=== PATIENT | female | born 1995 | race Hispanic/Latino ===

== ENCOUNTER 2017-05-26 07:36 | Emergency (ER) | payer MEDICAID, OTHER ==
[2017-05-26 08:07] VITALS: BMI 35.4
[2017-05-26 08:19] VITALS: TEMP 102.2
--- NOTE | 2017-05-26 08:20 | ED PDOC ---
Arrival/HPI - General Time Seen by Provider: 05/26/17 08:01 Historian: Patient - History of Present Illness Narrative History of Present Illness (Text): 05/26/17 08:05 Charlotte Ritter is a 22 Year old female, who presents to the emergency department complaining of coughing and generalized body aches. Patient reports this morning developing abdominal pain with vomiting, along with dizziness and states it caused her to fall and hit her face. Additionally, she notes taking Mucinex with no relief and these symptoms being similar to her PMH of pneumonia. Patient denies chest pain, shortness of breath, headache, fever, chills cough, diarrhea, recent travels or other complaints. Time/Duration: < week Symptom Onset: Gradual Symptom Course: Worsening Quality: Aching Context: Home Past Medical History - Provider Review Nursing Documentation Reviewed: Yes Family/Social History - Physician Review Nursing Documentation Reviewed: Yes Family/Social History: Unknown Family HX Allergies/Home Meds Allergies/Adverse Reactions: Allergies No Known Allergies Allergy (Verified 05/26/17 08:05) Review of Systems - Physician Review All systems were reviewed & negative as marked: Yes - Review of Systems Constitutional: absent: Fevers Respiratory: Cough. absent: SOB Cardiovascular: absent: Chest Pain Gastrointestinal: Abdominal Pain, Vomiting Musculoskeletal: Myalgias Neurological: Dizziness Physical Exam Vital Signs Reviewed: Yes Vital Signs Temp Pulse Resp BP Pulse Ox 05/26/17 11:12 116 H 18 101/51 L 98 05/26/17 09:16 102.2 F H 05/26/17 08:17 102.2 F H 107 H 19 100/66 97 Temperature: Febrile Blood Pressure: Normal Pulse: Tachycardic Respiratory Rate: Normal Appearance: Positive for: Well-Appearing, Non-Toxic, Comfortable Pain Distress: None Mental Status: Positive for: Alert and Oriented X 3 - Systems Exam Head: Present: Atraumatic, Normocephalic Pupils: Present: PERRL Extroacular Muscles: Present: EOMI Conjunctiva: Present: Normal Respiratory/Chest: Present: Clear to Auscultation, Good Air Exchange. No: Respiratory Distress, Accessory Muscle Use, Wheezes, Rales, Retracting, Rhonchi Cardiovascular: Present: Regular Rate and Rhythm, Normal S1, S2. No: Murmurs Abdomen: Present: Normal Bowel Sounds. No: Tenderness, Distention, Peritoneal Signs, Rebound, Guarding Neurological: Present: GCS=15, CN II-XII Intact, Speech Normal Skin: Present: Warm, Dry, Normal Color. No: Rashes Psychiatric: Present: Alert, Oriented x 3, Normal Insight, Normal Concentration Medical Decision Making ED Course and Treatment: 05/26/17 Impression: 22 Year old female with unremarkable physical exam Complaining of abdominal pain and dizziness since this morning. Plan: -- Chest X-ray -- Labs -- Urinalysis -- Reassess and disposition Progress Notes: 05/26/17 11:20 Chest X-ray: Creator : Jose Gage MD FINDINGS: LUNGSL: No active pulmonary disease. PLEURA: No significant pleural effusion identified, no pneumothorax apparent. CARDIOVASCULAR: Normal. OSSEOUS STRUCTURES: No significant abnormalities. VISUALIZED UPPER ABDOMEN: Normal. OTHER FINDINGS: None. IMPRESSION: No active disease. - Lab Interpretations Lab Results: 05/26/17 09:30 05/26/17 09:30 Lab Results 05/26/17 10:28: Urine Color Yellow, Urine Appearance Clear, Urine pH 8.5, Ur Specific [place] 1.020, Urine Protein Trace H, Urine Glucose (UA) Negative, Urine Ketones Negative, Urine Blood Negative, Urine Nitrate Negative, Urine Bilirubin Negative, Urine Urobilinogen 0.2, Ur Leukocyte Esterase Trace H, Urine RBC 0 - 2, Urine WBC 2 - 5, Ur Epithelial Cells 6 - 8, Urine Bacteria Few , Urine HCG, Qual Negative 05/26/17 09:30: Sodium 140, Potassium 4.1, Chloride 105, Carbon Dioxide 24, Anion Gap 15, BUN 8, Creatinine 0.8, Est GFR ( Amer) > 60, Est GFR (Non- Af Amer) > 60, Random Glucose 91, Calcium 9.5, Total Bilirubin 0.6, AST 24, ALT 36, Alkaline Phosphatase 71, Total Protein 7.6, Albumin 4.5, Globulin 3.1, Albumin/Globulin Ratio 1.5 05/26/17 09:30: WBC 5.0, RBC 4.00, Hgb 11.4 L, Hct 35.6 L, MCV 89.0, MCH 28.5, MCHC 32.0, RDW 13.7, Plt Count 154, MPV 12.0 H, Gran % 75.4 H, Lymph % (Auto) 12.9 L, [place] % (Auto) 11.3 H, Eos % (Auto) 0.4 L, Baso % (Auto) 0.0, Gran # 3.80 , Lymph # (Auto) 0.7 L, [place] # (Auto) 0.6, Eos # (Auto) 0.0, Baso # (Auto) 0.00 I have reviewed the lab results: Yes - RAD Interpretation Radiology Orders: 05/26/17 08:47 CHEST PORTABLE [RAD] Stat Cushion Cover Inspector: Radiologist - Medication Orders Current Medication Orders: Discontinued Medications Acetaminophen (Tylenol 325mg Tab) 650 mg PO STAT STA Stop: 05/26/17 08:49 Last Admin: 05/26/17 09:16 Dose: 650 mg MAR Pain/Vitals Document 05/26/17 09:16 LA (Rec: 05/26/17 09:20 LA [id number]) Pain Reassessment Is This A Pain ReAssessment? No Sleep Is patient sleeping during reassessment? No Presence of Pain Presence of Pain No Pain Scale Used Pain Scale Used Numeric Vitals Temperature (97.6 F-99.6 F) 102.2 F Temperature Source Oral Sodium Chloride (Sodium Chloride 0.9%) 1,000 mls @ 999 mls/hr IV .Q1H1M STA Stop: 05/26/17 09:49 Last Admin: 05/26/17 09:21 Dose: 999 mls/hr eMAR Start Stop Document 05/26/17 09:21 LA (Rec: 05/26/17 09:21 LA [id number]) Intravenous Solution Start Date 05/26/17 Start Time 09:21 - Scribe Statement The provider has reviewed the documentation as recorded by the Scribe Disposition/Present on Arrival - Present on Arrival Any Indicators Present on Arrival: No History of DVT/PE: No History of Uncontrolled Diabetes: No Urinary Catheter: No History of Decub. Ulcer: No - Disposition Have Diagnosis and Disposition been Completed?: Yes Diagnosis: Flu syndrome Disposition: HOME/ ROUTINE Disposition Time: 11:30 Patient Plan: Discharge Condition: STABLE Additional Instructions: Plenty of fluids. Tylenol every 4 hours Prescriptions: Oseltamivir Phosphate [Tamiflu] 75 mg PO BID #10 capsule Promethazine DM [Phenergan DM Syrup] 10 ml PO TID PRN #120 ml PRN Reason: Cough Referrals: [employer] [facility], [Primary Care Provider] - Follow up with primary
[2017-05-26] MEDS ORDERED: Sodium Chloride 0.9% 1,000 ML IV STA (08:49)
[2017-05-26 09:40] LABS: EOS % 0.4 % (1.5-5.0); GRAN # 3.8 (1.4-6.5); GRAN % 75.4 % (50.0-68.0); HEMOGLOBIN 11.4 g/dL (12.0-16.0); LYMPH # 0.7 (1.2-3.4); LYMPH % 12.9 % (22.0-35.0); MEAN CORPUSCULAR HEMOGLOBIN 28.5 pg (25.0-35.0); MONO # 0.6 (0.1-0.6); MONO % 11.3 % (1.0-6.0); RED CELL DISTRIBUTION WIDTH 13.7 % (11.5-14.5)
[2017-05-26 09:50] LABS: ALB/GLOB RATIO 1.5 (1.1-1.8); ALBUMIN 4.5 g/dL (3.0-4.8); ALT/SGPT 36 U/L (7-56); AST/SGOT 24 U/L (14-36); BLOOD UREA NITROGEN 8 mg/dL (7-21); CALCIUM 9.5 mg/dL (8.4-10.5); GFR AFRICAN-AMERICAN > 60; GFR NON-AFRICAN AMERICAN > 60
[2017-05-26 10:36] LABS: PH,URINE 8.5 (4.7-8.0); URINE BILIRUBIN NEGATIVE (NEGATIVE); URINE BLOOD NEGATIVE (NEGATIVE); URINE GLUCOSE (UA) NEGATIVE (NEGATIVE); URINE LEUKOCYTE ESTERASE TRACE Leu/uL (NEGATIVE); URINE NITRATE NEGATIVE (NEGATIVE); URINE PROTEIN TRACE mg/dL (<30 mg/dL); URINE UROBILINOGEN 0.2 E.U./dL (<1 E.U./dL)
[2017-05-26 10:40] LABS: URINE APPEARANCE CLEAR (CLEAR); URINE COLOR YELLOW (YELLOW)
[2017-05-26 10:43] LABS: URINE RBC 0 - 2 /hpf (0-2)
[2017-05-26 10:44] LABS: HCG,QUALITATIVE URINE NEGATIVE (NEGATIVE); URINE BACTERIA FEW (NEG)
[2017-05-26 11:15] VITALS: BP 101/51; PULSE 116; RESP 18; O2SAT 98
--- NOTE | 2017-05-26 11:16 | RAD ---
HISTORY: cough COMPARISON: No prior. FINDINGS: LUNGS: No active pulmonary disease. PLEURA: No significant pleural effusion identified, no pneumothorax apparent. CARDIOVASCULAR: Normal. OSSEOUS STRUCTURES: No significant abnormalities. VISUALIZED UPPER ABDOMEN: Normal. OTHER FINDINGS: None. IMPRESSION: No active disease.
== END 2017-05-26 11:40 | disposition home or self-care (01) ==
LOC: ED 07:36
DX: J11.1 Influenza due to unidentified influenza virus with other respiratory manifestations (principal)
CPT/HCPCS: 71045; 80053; 81001; 84703; 85025; 87086; 99284; J7040

== ENCOUNTER 2018-09-24 23:34 | Emergency (ER) | payer BC, MEDICAID ==
[2018-09-25 00:07] VITALS: TEMP 97.9; BMI 46.2
[2018-09-25] MEDS ORDERED: DiphenhydrAMINE 50 mg/ml Inj IVP STA (00:15)
[2018-09-25 00:42] LABS: BASO # 0.01 K/mm3 (0.0-2.0); BASO % 0.1 % (0.0-3.0); EOS # 0.1 (0.0-0.7); EOS % 0.5 % (1.5-5.0); HEMOGLOBIN 11.9 g/dL (12.0-16.0); LYMPH % 18.3 % (22.0-35.0); MEAN CORPUSCULAR HEMOGLOBIN 27.8 pg (25.0-35.0); MEAN CORPUSCULAR HGB CONC 32.7 g/dl (31.0-37.0); MEAN PLATELET VOLUME 11.8 fl (7.0-11.0); MONO # 0.8 (0.1-0.6); MONO % 6.9 % (1.0-6.0); RBC 4.28 10^6/uL (3.5-6.1); RED CELL DISTRIBUTION WIDTH 13.6 % (11.5-14.5)
[2018-09-25 00:45] LABS: INR 1.08; PARTIAL THROMBOPLASTIN TIME 32.1 Seconds (26.9-38.3)
[2018-09-25 00:51] LABS: ALB/GLOB RATIO 1.5 (1.1-1.8); ALBUMIN 4.4 g/dL (3.0-4.8); ALT/SGPT 27 U/L (7-56); AST/SGOT 22 U/L (14-36); BLOOD UREA NITROGEN 10 mg/dL (7-21); CALCIUM 9.2 mg/dL (8.4-10.5); GFR NON-AFRICAN AMERICAN > 60
--- NOTE | 2018-09-25 01:08 | ED PDOC ---
Arrival/HPI <Carlos Montenegro - Last Filed: 09/25/18 01:56> - General Historian: Patient - History of Present Illness Narrative History of Present Illness (Text): 09/25/18 01:04 23yo female with no past medical history who present with complaint of headache x days. States she started having the headache last month with her menstrual period. States the headache resolved and started again 4days ago with her period. States headache is on her nape and forehead area. States Tylenol and Ibuprofen is not helping her headache. Notes that she saw a Specialist?? last month and was referred for lab and MRI, but didn't go because the headache resolved. Denies nuchal ridgity, fever, nausea, vomiting, photophobia, any other complaint. <Jess Burroughs A - Last Filed: 09/26/18 01:04> - General Chief Complaint: Headache Past Medical History - Provider Review Nursing Documentation Reviewed: Yes - Pulmonary Hx Pneumonia: Yes - Musculoskeletal/Rheumatological Hx Falls: No - Psychiatric Hx Substance Use: No - Anesthesia Hx Anesthesia: No <Jess Burroughs A - Last Filed: 09/26/18 01:04> Family/Social History - Physician Review Nursing Documentation Reviewed: Yes Family/Social History: Unknown Family HX Smoking Status: Never Smoked Hx Alcohol Use: No Hx Substance Use: No <Jess Burroughs A - Last Filed: 09/26/18 01:04> Allergies/Home Meds <Carlos Montenegro - Last Filed: 09/25/18 01:56> <Jess Burroughs A - Last Filed: 09/26/18 01:04> Allergies/Adverse Reactions: Allergies No Known Allergies Allergy (Verified 09/25/18 00:22) Review of Systems - Physician Review All systems were reviewed & negative as marked: Yes - Review of Systems Constitutional: Normal Eyes: Normal ENT: Normal Respiratory: Normal Cardiovascular: Normal Gastrointestinal: Normal Genitourinary Female: Normal Musculoskeletal: Normal Skin: Normal Neurological: Headache. absent: Dizziness, Focal Weakness, Gait Changes, Speech Changes, Facial Droop Endocrine: Normal Hemo/Lymphatic: Normal Psychiatric: Normal <Jess Burroughs A - Last Filed: 09/26/18 01:04> Physical Exam Vital Signs Temp Pulse Resp BP Pulse Ox 09/25/18 00:07 97.9 F 90 18 177/77 H 100 <Carlos Montenegro - Last Filed: 09/25/18 01:56> Vital Signs Reviewed: Yes Vital Signs Temp Pulse Resp BP Pulse Ox 09/25/18 00:07 97.9 F 90 18 177/77 H 100 Temperature: Afebrile Blood Pressure: Normal Pulse: Regular Respiratory Rate: Normal Appearance: Positive for: Well-Appearing, Non-Toxic, Comfortable Pain Distress: None Mental Status: Positive for: Alert and Oriented X 3 - Systems Exam Head: Present: Atraumatic, Normocephalic Pupils: Present: PERRL Extroacular Muscles: Present: EOMI Conjunctiva: Present: Normal Mouth: Present: Moist Mucous Membranes Neck: Present: Normal Range of Motion Respiratory/Chest: Present: Clear to Auscultation, Good Air Exchange. No: Respiratory Distress, Accessory Muscle Use Cardiovascular: Present: Regular Rate and Rhythm, Normal S1, S2. No: Murmurs Abdomen: No: Tenderness, Distention, Peritoneal Signs Back: Present: Normal Inspection Upper Extremity: Present: Normal Inspection. No: Cyanosis, Edema Lower Extremity: Present: Normal Inspection. No: Edema Neurological: Present: GCS=15, CN II-XII Intact, Speech Normal, Motor Func Grossly Intact, Normal Sensory Function, Normal Cerebellar Funct, Gait Normal, Memory Normal, Other (No focal neurologicl deficit) Skin: Present: Warm, Dry, Normal Color. No: Rashes Psychiatric: Present: Alert, Oriented x 3, Normal Insight, Normal Concentration <Diru,Happiness A - Last Filed: 09/26/18 01:04> Medical Decision Making - Lab Interpretations Lab Results: PT 12.0 SECONDS (9.4-12.5) 09/25/18 00:28 INR 1.08 09/25/18 00:28 APTT 32.1 Seconds (26.9-38.3) 09/25/18 00:28 Total Bilirubin 0.7 mg/dL (0.2-1.3) 09/25/18 00:28 AST 22 U/L (14-36) 09/25/18 00:28 ALT 27 U/L (7-56) 09/25/18 00:28 Alkaline Phosphatase 76 U/L (38-126) 09/25/18 00:28 Total Protein 7.4 g/dL (5.8-8.3) 09/25/18 00:28 Albumin 4.4 g/dL (3.0-4.8) 09/25/18 00:28 Globulin 3.0 gm/dL 09/25/18 00:28 Albumin/Globulin Ratio 1.5 (1.1-1.8) 09/25/18 00:28 - RAD Interpretation Radiology Orders: 09/25/18 00:15 HEAD W/O CONTRAST [CT] Stat - Medication Orders Current Medication Orders: Discontinued Medications Acetaminophen (Tylenol 325mg Tab) 650 mg PO STAT STA Stop: 09/25/18 00:16 Last Admin: 09/25/18 00:34 Dose: 650 mg Diphenhydramine HCl (Benadryl) 25 mg IVP STAT STA Stop: 09/25/18 00:16 Last Admin: 09/25/18 00:35 Dose: 25 mg IVP Administration Document 09/25/18 00:35 CNR (Rec: 09/25/18 00:35 CNR [id number]) Charges for Administration # of IVP Administrations 1 Metoclopramide HCl (Reglan) 10 mg IVP STAT STA Stop: 09/25/18 00:16 Last Admin: 09/25/18 00:35 Dose: 10 mg IVP Administration Document 09/25/18 00:35 CNR (Rec: 09/25/18 00:35 CNR [id number]) Charges for Administration # of IVP Administrations 1 <Carlos Montenegro - Last Filed: 09/25/18 01:56> ED Course and Treatment: 09/26/18 01:02 PT presented to ED for stated history. She had no focal neurological deficit. On re evaluation she noted improvement of her symptom with medication Lab was unremarkable Head CT was negative Result was DW the pt and she was DC home with Fioricet. Referred to her Neuro - Lab Interpretations Lab Results: PT 12.0 SECONDS (9.4-12.5) 09/25/18 00:28 INR 1.08 09/25/18 00:28 APTT 32.1 Seconds (26.9-38.3) 09/25/18 00:28 Total Bilirubin 0.7 mg/dL (0.2-1.3) 09/25/18 00:28 AST 22 U/L (14-36) 09/25/18 00:28 ALT 27 U/L (7-56) 09/25/18 00:28 Alkaline Phosphatase 76 U/L (38-126) 09/25/18 00:28 Total Protein 7.4 g/dL (5.8-8.3) 09/25/18 00:28 Albumin 4.4 g/dL (3.0-4.8) 09/25/18 00:28 Globulin 3.0 gm/dL 09/25/18 00:28 Albumin/Globulin Ratio 1.5 (1.1-1.8) 09/25/18 00:28 - RAD Interpretation Radiology Orders: 09/25/18 00:15 HEAD W/O CONTRAST [CT] Stat - Medication Orders Current Medication Orders: Discontinued Medications Acetaminophen (Tylenol 325mg Tab) 650 mg PO STAT STA Stop: 09/25/18 00:16 Last Admin: 09/25/18 00:34 Dose: 650 mg Diphenhydramine HCl (Benadryl) 25 mg IVP STAT STA Stop: 09/25/18 00:16 Last Admin: 09/25/18 00:35 Dose: 25 mg IVP Administration Document 09/25/18 00:35 CNR (Rec: 09/25/18 00:35 CNR [id number]) Charges for Administration # of IVP Administrations 1 Metoclopramide HCl (Reglan) 10 mg IVP STAT STA Stop: 09/25/18 00:16 Last Admin: 09/25/18 00:35 Dose: 10 mg IVP Administration Document 09/25/18 00:35 CNR (Rec: 09/25/18 00:35 CNR [id number]) Charges for Administration # of IVP Administrations 1 <Jess Burroughs - Last Filed: 09/26/18 01:04> - PA / [employer] / Resident Statement / has reviewed & agrees with the documentation as recorded. <Carlos Montenegro - Last Filed: 09/25/18 01:56> Disposition/Present on Arrival <Carlos Montenegro - Last Filed: 09/25/18 01:56> - Present on Arrival Any Indicators Present on Arrival: No History of DVT/PE: No History of Uncontrolled Diabetes: No Urinary Catheter: No History of Decub. Ulcer: No History Surgical Site Infection Following: None - Disposition Have Diagnosis and Disposition been Completed?: Yes Disposition Time: 01:40 Patient Plan: Discharge <Jess Burroughs - Last Filed: 09/26/18 01:04> - Disposition Diagnosis: Headache Disposition: HOME/ ROUTINE Condition: STABLE Discharge Instructions (ExitCare): Headache, Adult (DC) Additional Instructions: Take medication as directed Follow up with your Doctor/Neurologist Return to EF for nay new or worseng symptoms Prescriptions: Acetaminophen/Butalbital/Caf [Fioricet] 1 tab PO Q4 #15 tab Referrals: Gabino Walker MD [Staff Provider] - Follow up with primary Forms: [email or web address] ([place])
[2018-09-25 01:59] VITALS: BP 142/78; PULSE 88; RESP 14; O2SAT 99
--- NOTE | 2018-09-25 08:36 | CT ---
Date of service: 09/25/2018 PROCEDURE: CT HEAD WITHOUT CONTRAST. HISTORY: headache COMPARISON: None available. TECHNIQUE: Axial computed tomography images were obtained through the head/brain without intravenous contrast. Radiation dose: Total exam DLP = 879.5 mGy-cm. This CT exam was performed using one or more of the following dose reduction techniques: Automated exposure control, adjustment of the mA and/or kV according to patient size, and/or use of iterative reconstruction technique. FINDINGS: HEMORRHAGE: No intracranial hemorrhage. BRAIN: Llamas-white matter differentiation is preserved. There is no mass, mass effect or abnormal extra-axial fluid collection. There is no territorial infarction. The midline sagittal structures are normal. VENTRICLES: The ventricles are normal in size, shape and configuration. CALVARIUM: There is no calvarial fracture or extracranial soft tissue swelling. PARANASAL SINUSES: Predominantly clear. MASTOID AIR CELLS: Predominantly clear. OTHER FINDINGS: None. IMPRESSION: No acute intracranial abnormality. A preliminary report was provided by [employer].
== END 2018-09-25 01:58 | disposition home or self-care (01) ==
LOC: ED 23:34
DX: R51 Headache (principal)
CPT/HCPCS: 70450; 80053; 81025; 85025; 85610; 85730; 96374; 96375; 99285; J1200; J2765